=== PATIENT | male | born 1980 | race Caucasian/White ===

== ENCOUNTER 2017-08-14 04:11 | Emergency (ER) | payer SELFPAY ==
--- NOTE | 2017-08-14 05:22 | ED ---
Hima Magallon Angela, scribed for Raymundo Figueroa MD on 08/14/17 at 0457 . Back Pain - HPI Summary HPI Summary: This pt is a 37 y/o male presenting to [facility] c/o low back pain since last night. Pt denies injury or trauma to his back. He states he returned home from work and noticed his back was sore last night. He believes he must have pulled a muscle while at work. Pt notes he woke up twice in the middle of the night with low back pain. Denies pain radiating down legs, urinary or bowel incontinence, numbness, weakness, tingling, difficulty walking. Pt has taken ibuprofen and hydrocodone at 03:45 today. Pt sees a chiropractor and was going to see him today but his pain worsened. Denies any PMHx. - History of Current Complaint Chief Complaint: EDBackInjuryPain Stated Complaint: BACK INJURY Hx Obtained From: Patient Onset/Duration: Lasting Hours, Still Present Onset/Duration: Started Hours Ago, Atraumatic, Still Present Timing: Lasting Hours Back Pain Location: Is Discrete @ - low back Severity Currently: Moderate Pain Intensity: 6 Pain Scale Used: 0-10 Numeric Character: Aching Aggravating Symptom(s): Movement Alleviating Symptom(s): Position Associated Signs And Symptoms: Negative: Weakness, Numbness, Tingling, Abdominal Pain, Bladder Incontinence, Bowel Incontinence - Allergies/Home Medications Allergies/Adverse Reactions: Allergies Allergy/AdvReac Type Severity Reaction Status Date / Time No Known Allergies Allergy Verified 08/14/17 04:18 PMH/Surg Hx/FS Hx/Imm Hx Endocrine/Hematology History: Denies: Hx Diabetes Cardiovascular History: Denies: Hx Hypertension Infectious Disease History: No Infectious Disease History: Denies: Traveled Outside the [place] in Last 30 Days - Family History Known Family History: Negative: Cardiac Disease, Hypertension, Diabetes - Social History Alcohol Use: Rare Substance Use Type: Reports: None Smoking Status (MU): Never Smoked Tobacco Review of Systems Negative: Fever ENT: Negative Cardiovascular: Negative Respiratory: Negative Negative: incontinence Musculoskeletal: Other - low back pain Negative: Weakness, Paresthesia, Numbness All Other Systems Reviewed And Are Negative: Yes Physical Exam - Summary Physical Exam Summary: Appearance: Well appearing, no pain distress Skin: warm, dry, reflects adequate perfusion Head/face: normal Eyes: EOMI, NESSA ENT: normal Neck: supple, non-tender Respiratory: CTA, breath sounds present Cardiovascular: RRR, pulses symmetrical Abdomen: non-tender, soft Bowel: present Musculoskeletal: Tenderness and spasm in the low lumbar musculature. ROM in lumbar area is limited secondary to pain and spasm. Normal saddle sensation. Negative straight leg raise bilaterally. Normal gait. Neuro: normal, sensory motor intact, A&Ox3 Triage Information Reviewed: Yes Vital Signs On Initial Exam: Initial Vitals Temp Pulse Resp BP Pulse Ox 97.2 F 71 16 135/86 98 08/14/17 04:12 08/14/17 04:12 08/14/17 04:12 08/14/17 04:12 08/14/17 04:12 Vital Signs Reviewed: Yes Procedures - Procedure Summary Procedure Summary: Trigger point injection: Reason: Lumbar back pain/spasm Description: The patient was verbally consented. The low lumbar musculature on both sides was cleaned with alcohol. A mixture of a total of 5 cc of 1% lidocaine and 15 cc of 0.5% bupivacaine was injected in divided aliquots into the lumbar paraspinous musculature on both sides. The medication was then massaged through the tissues. The patient tolerated this well and had excellent pain relief. He was up and walking almost instantly. There were no complications. Diagnostics - Vital Signs Vital Signs Temp Pulse Resp BP Pulse Ox 08/14/17 04:12 97.2 F 71 16 135/86 98 - Laboratory Lab Statement: Any lab studies that have been ordered have been reviewed, and results considered in the medical decision making process. Re-Evaluation - Re-Evaluation First Eval Change: Improved - Feels much better after trigger point injection Back Pain Course/Dx - Course Course Of Treatment: No evidence for cauda equina or conus medullaris syndrome. No disc syndrome. Neurologically intact. Trigger point injection relieved patient's spasm and pain. Discharged to follow-up with his chiropractor. As needed and cyclobenzaprine prescribed. - Diagnoses Provider Diagnoses: Lumbar strain Discharge - Sign-Out/Discharge Documenting (check all that apply): Discharge/Admit/Transfer - Discharge - Discharge Plan Condition: Good Disposition: HOME Prescriptions: Cyclobenzaprine TAB* [Flexeril 10 MG TAB*] 10 mg PO TID PRN #15 tab PRN Reason: muscle pain Patient Education Materials: Low Back Strain (ED) Referrals: [facility] [Outside] Additional Instructions: Stay active, massage/icing may help. Range of motion exercises. Call your chiropractor today for appointment and follow-up. Return with difficulty with bowel or bladder, uncontrolled pain, numbness/weakness, worse or other concerns. Do not drive or taking muscle relaxer as it may make you drowsy. - Billing Disposition and Condition Condition: GOOD Disposition: HOME The documentation as recorded by the Hima jackson Angela accurately reflects the service I personally performed and the decisions made by me, Raymundo Figueroa MD.
[2017-08-14 05:25] VITALS: BP 137/87
== END 2017-08-14 05:25 | disposition home or self-care (01) ==
LOC: ED 04:11
DX: S39.012A Strain of muscle, fascia and tendon of lower back, initial encounter (principal); X58.XXXA Exposure to other specified factors, initial encounter; Y92.9 Unspecified place or not applicable
CPT/HCPCS: 20552; 99282

== ENCOUNTER 2018-03-03 03:50 | Emergency (ER) | payer SELFPAY ==
--- NOTE | 2018-03-03 04:07 | ED ---
Back Pain - HPI Summary HPI Summary: This patient is a 38 year old M presenting to [facility] with a chief complaint of right flank pain that began at 0300. The patient rates the pain 7/10 in severity and states it radiates into his groin. Patient reports n/v. Patient denies dysuria and hematuria. Hx of kidney stones - History of Current Complaint Chief Complaint: EDFlankPain Stated Complaint: FLANK PAIN Hx Obtained From: Patient Onset/Duration: Still Present Onset/Duration: Still Present Timing: Constant Back Pain Location: Is Discrete @ - flank Severity Initially: Severe Severity Currently: Severe Pain Intensity: 7 Pain Scale Used: 0-10 Numeric Associated Signs And Symptoms: Positive: Other - n/v - Allergies/Home Medications Allergies/Adverse Reactions: Allergies Allergy/AdvReac Type Severity Reaction Status Date / Time No Known Allergies Allergy Verified 03/03/18 03:56 PMH/Surg Hx/FS Hx/Imm Hx Endocrine/Hematology History: Denies: Hx Diabetes Cardiovascular History: Denies: Hx Hypertension History: Reports: Hx Kidney Stones Infectious Disease History: No Infectious Disease History: Denies: Traveled Outside the [place] in Last 30 Days - Family History Known Family History: Positive: Non-Contributory Negative: Cardiac Disease, Hypertension, Diabetes - Social History Alcohol Use: Rare Substance Use Type: Reports: None Smoking Status (MU): Never Smoked Tobacco Review of Systems Positive: Vomiting, Nausea Positive: flank pain. Negative: discharge, hematuria All Other Systems Reviewed And Are Negative: Yes Physical Exam - Summary Physical Exam Summary: VITAL SIGNS: Reviewed. GENERAL: Patient is a well-developed and nourished (MALE OR FEMALE) who is lying comfortable in the stretcher. Patient is not in any acute respiratory distress. HEAD AND FACE: No signs of trauma. No ecchymosis, hematomas or skull depressions. No sinus tenderness. EYES: PERRLA, EOMI x 2, No injected conjunctiva, no nystagmus. EARS: Hearing grossly intact. Ear canals and tympanic membranes are within normal limits. MOUTH: Oropharynx within normal limits. NECK: Supple, trachea is midline, no adenopathy, no JVD, no carotid bruit, no c- spine tenderness, neck with full ROM. CHEST: Symmetric, no tenderness at palpation LUNGS: Clear to auscultation bilaterally. No wheezing or crackles. CVS: Regular rate and rhythm, S1 and S2 present, no murmurs or gallops appreciated. ABDOMEN: Soft, LUQ TTP. No signs of distention. No rebound no guarding, and no masses palpated. Bowel sounds are normal. EXTREMITIES: FROM in all major joints, no edema, no cyanosis or clubbing. NEURO: Alert and oriented x 3. No acute neurological deficits. Speech is normal and follows commands. SKIN: Dry and warm Back: right CVA tenderness Triage Information Reviewed: Yes Vital Signs On Initial Exam: Initial Vitals Temp Pulse Resp BP Pulse Ox 97.0 F 72 16 131/92 100 03/03/18 03:50 03/03/18 03:50 03/03/18 03:50 03/03/18 03:50 03/03/18 03:50 Vital Signs Reviewed: Yes Diagnostics - Vital Signs Vital Signs Temp Pulse Resp BP Pulse Ox 03/03/18 03:50 97.0 F 72 16 131/92 100 - Laboratory Result Diagrams: 03/03/18 04:53 03/03/18 04:53 Lab Statement: Any lab studies that have been ordered have been reviewed, and results considered in the medical decision making process. - CT CT ABD/Pelvis CT Interpretation Completed By: Radiologist Summary of CT Findings: There is a 2 mm calculus noted in the distal right ureter with associated mild. right-sided hydroureteronephrosis. ED physician has reviewed this radiology report. Back Pain Course/Dx - Course Assessment/Plan: This patient is a 38 year old M presenting to [facility] with a chief complaint of right flank pain that began at 0300. The patient rates the pain 7/10 in severity and states it radiates into his groin. Patient reports n/ v. Patient denies dysuria and hematuria. Hx of kidney stones. CT ABD/Pelvis reveals, per radiologist, There is a 2 mm calculus noted in the distal right ureter with associated mild. right-sided hydroureteronephrosis. Bloodwork and UA obtained. In the ED course the patient was given toradol, dilaudid, IV fluids, flomax, and reglan. Pts sx improved with these medications. Dx renal colic, right ureteral stone. Patient will be discharged with prescription for flomax and percocet and follow up from Dr. mesa. The patient is agreeable with this plan. - Diagnoses Provider Diagnoses: Right ureteral stone, Renal colic Discharge - Sign-Out/Discharge Documenting (check all that apply): Patient Departure - Discharge Plan Condition: Stable Disposition: HOME Prescriptions: Ibuprofen TAB* [Motrin TAB* 800 MG] 800 mg PO Q6H PRN #30 tab PRN Reason: Pain oxyCODONE/Acetamin 5/325 MG* [Percocet 5/325 TAB*] 1 tab PO Q6H PRN #14 tab MDD 4 PRN Reason: Pain Tamsulosin CAP* [Flomax CAP*] 0.4 mg PO BEDTIME #7 cap Patient Education Materials: Kidney Stones (ED) Referrals: Marcelo Mesa MD [Medical Doctor] - 2 Days Additional Instructions: RETURN TO THE EMERGENCY DEPARTMENT FOR CHANGING OR WORSENING SYMPTOMS. - Attestation Statements Document Initiated by Scribe: Yes Documenting Scribe: Bo Chahal Provider For Whom Scribe is Documenting (Include Credential): Karen Tian MD Scribe Attestation: Bo Magallon , scribed for Karen Tian MD on 03/03/18 at 0630. Status of Scribe Document: Ready
[2018-03-03] MEDS ORDERED: Ketorolac INJ* 30 MG/ML 1 ML VIAL IV ONE (04:20)
[2018-03-03] MEDS ORDERED: Metoclopramide IV* 5 MG/ML 2 ML VIAL IV ONE (04:20)
[2018-03-03] MEDS ORDERED: NS 0.9% 1000 ML* 2,000 ML IV ONE (04:20)
[2018-03-03] MEDS ORDERED: HYDROmorphone INJ1* 1 MG/ML SYRINGE IV SLOW PU ONE (04:20)
[2018-03-03 05:11] LABS: ABS Basophils 0 10^3/ul (0-0.2); ABS Eosinophils 0.1 10^3/ul (0-0.6); ABS Lymphocytes 1.6 10^3/ul (1.0-4.8); ABS Monocytes 0.6 10^3/ul (0-0.8); ABS Neutrophils 3.1 10^3/ul (1.5-7.7); ABS Nucleated RBC 0 10^3/ul; Eosinophil % 1.6 %; Hematocrit 41 % (42-52); Hemoglobin 13.8 g/dl (14.0-18.0); Lymphocyte % 29.8 %; Mean Corpuscular HGB Conc 34 g/dl (31-36); Mean Corpuscular Hemoglobin 30 pg (27-31); Mean Corpuscular Volume 87 fL (80-94); Mean Platelet Volume 8.8 fL (7.4-10.4); Nucleated Red Blood Cells % 0.2; Platelet Count 194 10^3/ul (150-450); Red Blood Count 4.63 10^6/ul (4.00-5.40); Red Cell Distribution Width 13 % (10.5-15); White Blood Count 5.4 10^3/ul (3.5-10.8)
[2018-03-03 05:29] LABS: EGFR Non-African American 73.8 (>60)
[2018-03-03] MEDS ORDERED: Tamsulosin CAP* 0.4 MG PO ONE (05:35)
[2018-03-03] MEDS ORDERED: Morphine VIAL* 4 MG/ML VIAL (1 ml vial) IV ONE (06:35)
[2018-03-03 06:51] VITALS: BP 126/81
[2018-03-03 06:55] LABS: Urine Appearance Clear; Urine Blood 3+ (Negative); Urine Color Yellow; Urine Ketones Negative (Negative); Urine Protein Negative (Negative); Urine Red Blood Cell 3+(>10/hpf) (Absent); Urine Specific Gravity 1.018 (1.010-1.030); Urine Urobilinogen Negative (Negative); Urine White Blood Cell Absent (Absent)
== END 2018-03-03 07:09 | disposition home or self-care (01) ==
LOC: ED 03:50
DX: N20.1 Calculus of ureter (principal); Z87.442 Personal history of urinary calculi
CPT/HCPCS: 36415; 74176; 80053; 81003; 81015; 83690; 83735; 85025; 86140; 96361; 96374; 96375; 99283; J1170; J1885; J2270; J2765